=== PATIENT | female | born 1975 | race Hispanic/Latino ===

== ENCOUNTER 2018-08-16 21:00 | Emergency (ER) | payer SELFPAY ==
[2018-08-16 21:48] LABS: #Eosinphils 0.1 thou/uL (0.0-0.7); #Lymphocytes 2.4 thou/uL (1.20-3.40); #Monocytes 0.4 thou/uL (0.11-0.59); #Neutrophils 6.8 thou/uL (1.40-6.50); %Basophils 0.5 % (0.0-1.0); %Eosinophils 0.9 % (0.0-10.0); %Lymphocytes 24.3 % (21.0-51.0); %Monocytes 4.2 % (0.0-10.0); %Neutrophils 70.1 % (42.0-75.0); Hemoglobin 12.3 g/dL (12.0-16.0); Mean Corpuscular HGB CONC 33.1 g/dL (32.0-36.0); Mean Corpuscular Volume 93.6 fL (78.0-98.0); Mean Platelet Volume 7.2 fL (7.4-10.4); Platelet Count 302 thou/uL (130-400); RBC Distribution Width 11.3 % (11.5-14.5); Red Blood Cell (RBC) Count 3.96 mill/uL (4.20-5.40); White Blood Cell (WBC) Count 9.8 thou/uL (4.8-10.8)
--- NOTE | 2018-08-16 22:42 | ULT ---
PELVIC ULTRASOUND: 08/16/18 HISTORY: Positive HCG. Vaginal bleeding and cramping. Multiple longitudinal and transverse images of the pelvis is obtained using a multihertz endovaginal transducer. Real time, color flow and spectral waveform doppler analysis demonstrates an area of hypo echogenicity seen within the uterine cavity measuring approximately 3 x 2 mm, possibly representing a gestational sac or intrauterine fluid. A pole and cardiac activity is not visualized. No evidence of free pelvic fluid seen. Both ovaries visualized with the right ovary measuring 2.6 x 0.8 x 2.4 cm and the left ovary measurin g 2.4 x 1.4 x 1.5 cm. The uterus has a three dimensional measurement of 8.6 x 4.3 x 5.5 cm. No evidence of free pelvic fluid seen. IMPRESSION: 1. No evidence of free intraperitoneal fluid. 2. There may be a gestational sac or small amount of fluid within the uterine cavity. Correlate with followup sonography and HCG levels. POS: [facility]
== END 2018-08-16 23:00 | disposition home or self-care (01) ==
LOC: ERS 21:00
DX: O09.521 Supervision of elderly multigravida, first trimester (principal); O20.9 Hemorrhage in early pregnancy, unspecified; Z3A.01 Less than 8 weeks gestation of pregnancy
CPT/HCPCS: 36415; 76856; 85025; 86900; 86901

== ENCOUNTER 2018-08-19 18:27 | Emergency (ER) | payer SELFPAY ==
[2018-08-19 19:05] LABS: #Eosinphils 0.1 thou/uL (0.0-0.7); #Lymphocytes 2.3 thou/uL (1.20-3.40); #Monocytes 0.3 thou/uL (0.11-0.59); %Basophils 0.6 % (0.0-1.0); %Eosinophils 1.3 % (0.0-10.0); %Neutrophils 59.2 % (42.0-75.0); Hemoglobin 12.2 g/dL (12.0-16.0); Mean Corpuscular HGB CONC 33.7 g/dL (32.0-36.0); Mean Corpuscular Hemoglobin 31.3 pg (27.0-31.0); Mean Corpuscular Volume 93.1 fL (78.0-98.0); Mean Platelet Volume 7.1 fL (7.4-10.4); Platelet Count 303 thou/uL (130-400); White Blood Cell (WBC) Count 6.8 thou/uL (4.8-10.8)
--- NOTE | 2018-08-19 20:30 | ULT ---
FIRST TRIMESTER OBSTETRICAL ULTRASOUND: HISTORY: Concern for possible ectopic. COMPARISON: 08/16/2018 FINDINGS: The uterus measures 8.3 x 4.7 x 5.2 cm. The right ovary measures 2.3 x 1.3 x 1.6 cm. The left ovary measures 2.3 x 1.2 x 1.7 cm. Nabothian cysts are seen within the cervix. The endometrial stripe is 9.6 mm. There is a small, oblong, hypoechoic collection seen within the lower uterine segment, slig htly more prominent than on the prior examination, which may reflect a small pseudo-gestational sac o r a small intrauterine gestation. The gestational age based on mean sac diameter is 5 weeks 2 days. No pole is present. No subchorionic hemorrhage is evident. No yolk sac is evident. No free fluid is evident. IMPRESSION: 1. Slightly more prominent cystic collection within the lower uterine segment. There is a reportedl y decreasing beta hCG level. Findings may reflect an in progress. Ectopic is not entirely excluded. No extrauterine mass is demonstrated. Continued clinical and sonographic follow up is recommended. 2. Multiple nabothian cysts. POS: [facility]
== END 2018-08-19 21:42 | disposition home or self-care (01) ==
LOC: ERS 18:27
DX: O03.9 Complete or unspecified spontaneous abortion without complication (principal); O09.529 Supervision of elderly multigravida, unspecified trimester; F32.9 Major depressive disorder, single episode, unspecified
CPT/HCPCS: 36415; 76856; 84702; 85025